=== PATIENT | female | born 1980 | race Two or more races ===

== ENCOUNTER 2018-01-11 19:27 | Emergency (ER) | payer MEDICAID ==
[~2018-01-11] VITALS: Ht 172.7 cm; Wt 83.7 kg
[2018-01-11 20:20] VITALS: Ht 172.7 cm; Wt 83.7 kg
[2018-01-11 21:58] LABS: BASOPHIL % 0.4 % (0-2); PLATELET COUNT 265 x10^3mcL (130-400); RED CELL DISTRIBUTION WIDTH 13.4 % (11.5-14.5)
[2018-01-11 22:09] LABS: CALCIUM 8.4 mg/dL (8.5-10.1); CARBON DIOXIDE 37.8 mmol/L (21-32); POTASSIUM SERUM 3.3 mmol/L (3.5-5.1)
[2018-01-11 23:01] VITALS: BP 164/99
== END 2018-01-11 23:01 | disposition home or self-care (01) ==
LOC: ED 19:27
PROVIDERS: Emergency Medicine
DX: I10 Essential (primary) hypertension (principal); R10.9 Unspecified abdominal pain; Z88.6 Allergy status to analgesic agent
CPT/HCPCS: 36415; J1885; Q0092